=== PATIENT | female | born 1970 | race Two or more races ===

== ENCOUNTER 2020-10-21 21:40 | Emergency (ER) | payer OTHER ==
[~2020-10-21] VITALS: Ht 160 cm; Wt 76.2 kg
[2020-10-21] MEDS ORDERED: SYNTHROID50 MCG PO (22:18)
[2020-10-22] MEDS ORDERED: LEVSIN/SL0.125 MG SL (03:20)
== END 2020-10-22 03:34 | disposition home or self-care (01) ==
LOC: ER 21:40
DX: R10.32 Left lower quadrant pain (principal)